=== PATIENT | male | born 1985 | race Caucasian/White ===

== ENCOUNTER 2017-04-18 18:14 | Emergency (ER) | payer OTHER ==
[~2017-04-18] VITALS: Wt 81.5 kg
[2017-04-18] MEDS ORDERED: IBUPROFEN 600 MG TAB PO ONE (19:30)
[2017-04-18] MEDS ORDERED: DIPHTH/TET/ACEL PERTUSS (ADULT) 0.5 ML VIAL IM* ONE (19:30)
[2017-04-18] MEDS ORDERED: LIDOCAINE 1% (MDV) 20 ML INJ SC ONE (19:30)
--- NOTE | 2017-04-18 20:43 | RADRPT ---
PROCEDURE: XR Right Hand CLINICAL INDICATION: Laceration to right index finger. TECHNIQUE: PA, oblique, and lateral radiographs were submitted. COMPARISON: None FINDINGS: Osseous structures: appear well mineralized and intact with no fracture or destructive process iden tified. Joint spaces: are well maintained, with no significant spurring, erosion or joint effusion evident. Soft tissues: appear unremarkable. IMPRESSION: Unremarkable right hand. Physician Ashlee Date Time Electronically viewed and signed by Stanton Bragg Physician on 04/18/2017 20:42 /
[2017-04-18] MEDS ORDERED: IBUP-1542 PO (20:46)
[2017-04-18] MEDS ORDERED: CEPH-443 PO (20:46)
[2017-04-18 20:59] VITALS: BP 125/73; PULSE 79; RESP 18; TEMP 98
--- NOTE | 2017-04-18 21:49 | ERD ---
ER Documentation Chief Complaint Date/Time DATE: 04/18/17 TIME: 21:44 Chief Complaint RIGHT INDEX LAC HPI This patient is a 32-year-old male presenting to the emergency department with complaints of right index finger laceration which occurred today while playing basketball. The patient states a basketball hit his right index finger hyperextending it and tearing the skin at the PIP joint line on the ventral surface of the hand. He went to an urgent care and he was sent to the emergency department from there because there was tendon visible. Pain is 3 out of 10 and worse with movement. Tetanus is not up-to-date. No significant bleeding was noted. He states he can move all his fingers well and make a fist. No other injuries or symptoms reported. ROS All systems reviewed and are negative except as per history of present illness. Medications Home Meds Active Scripts Ibuprofen* (Motrin*) 600 Mg Tab, 600 MG PO Q6, #30 TAB Prov:ALICIA GUILLEN PA-C 04/18/17 Cephalexin* (Keflex*) 500 Mg Capsule, 500 MG PO TID for 5 Days, #15 CAP Prov:ALICIA GUILLEN PA-C 04/18/17 Allergies Allergies: Coded Allergies: No Known Allergy (Unverified , 04/18/17) PMhx/Soc Medical and Surgical Hx: pt denies Medical Hx, pt denies Surgical Hx History of Surgery: No Anesthesia Reaction: No Hx Neurological Disorder: No Hx Respiratory Disorders: No Hx Cardiac Disorders: No Hx Psychiatric Problems: No Hx Miscellaneous Medical Probl: No Hx Alcohol Use: Yes Hx Substance Use: No Hx Tobacco Use: No Smoking Status: Never smoker Physical Exam Vitals Vital Signs Date Time Temp Pulse Resp B/P Pulse Ox O2 Delivery O2 Flow Rate FiO2 04/18/17 20:59 98.0 79 18 125/73 100 Room Air 04/18/17 18:16 98.1 78 18 129/78 99 Physical Exam Const: Nontoxic, well-appearing male in no acute distress. Head: Atraumatic Eyes: Normal Conjunctiva ENT: Normal External Ears, Nose and Mouth. Neck: Full range of motion..~ No meningismus. Resp: No signs of respiratory distress. Skin: There is an approximate 2 cm laceration over the PIP joint line on the ventral surface of the right index finger. There is tendon visible, however there is no evidence of foreign body or tendon rupture. Back: No midline or flank tenderness Ext: No cyanosis, or edema. The patient has full range of motion of all 5 fingers of the right upper extremity. The patient is able to fully flex and extend the right index finger. Sensation and strength is intact in the right index finger. 2+ radial pulses noted in the right upper extremity. Neur: Awake and alert Psych: Normal Mood and Affect Results 24 hrs Current Medications Medications (Trade) Dose Ordered Sig/[place] Route PRN Reason Start Time Stop Time Status Last Admin Dose Admin Ibuprofen (Motrin) 600 mg ONCE ONCE PO 04/18/17 19:30 04/18/17 19:31 DC 04/18/17 19:47 Diphtheria/ Tetanus/Acell Pertussis (Adacel) 0.5 ml ONCE ONCE IM* 04/18/17 19:30 04/18/17 19:31 DC 04/18/17 19:48 Lidocaine (Xylocaine 1% (Mdv) 20 ml) 20 ml ONCE ONCE SC 04/18/17 19:30 04/18/17 19:31 DC Procedures/MDM 32-year-old male presenting to the emergency department for laceration to his right index finger. On physical examination there was tendon visualized but no evidence of tendon rupture or severed tendon. I discussed this case with Dr. Sonido Anderson, who was made aware of the physical examination findings and recommended superficial simple interrupted sutures to repair the laceration. The patient tolerated the procedure well.X-rays show no acute abnormality. Antibiotics were given as a prescription to prevent infection of the hand. 48 hour follow-up was advised. Laceration Repair by me: Anesthesia: 1% lidocaine locally, Digital block. Location: Ventral surface of the right index finger at the PIP joint. Tendon/Joint/Nerves: No injury Foreign body: None detected after copious irrigation and exploration Technique: 4 x 4-o nylon Simple Interrupted Sutures Complexity: No subcutaneous sutures/mucosal repair/ edge excision Post Closure Length: 2 cm Patient's bleeding was easily controlled in the department and there is no indication of anemia. No evidence of compartment syndrome, neurologic injury, vascular injury, open joint, tendon laceration, or foreign body. Patient is appropriate for outpatient follow up. 48 hour wound check. Scar minimization instructions given. PROCEDURE: XR Right Hand CLINICAL INDICATION: Laceration to right index finger. TECHNIQUE: PA, oblique, and lateral radiographs were submitted. COMPARISON: None FINDINGS: Osseous structures: appear well mineralized and intact with no fracture or destructive process identified. Joint spaces: are well maintained, with no significant spurring, erosion or joint effusion evident. Soft tissues: appear unremarkable. IMPRESSION: Unremarkable right hand. Physician Ashlee Date Time Electronically viewed and signed by Physician Ashlee on 04/18/2017 20:42 Departure Diagnosis: Primary Impression: Laceration of right index finger Encounter type: initial encounter Damage to nail status: without damage Foreign body presence: without foreign body Qualified Code: S61.210A - Laceration of right index finger without foreign body without damage to nail, initial encounter Condition: Fair Patient Instructions: Laceration, Hand Referrals: [facility] YOU HAVE RECEIVED A MEDICAL SCREENING EXAM AND THE RESULTS INDICATE THAT YOU DO NOT HAVE A CONDITION THAT REQUIRES URGENT TREATMENT IN THE EMERGENCY DEPARTMENT. FURTHER EVALUATION AND TREATMENT OF YOUR CONDITION CAN WAIT UNTIL YOU ARE SEEN IN YOUR DOCTORS OFFICE WITHIN THE NEXT 1-2 DAYS. IT IS YOUR RESPONSIBILITY TO MAKE AN APPOINTMENT FOR FOLOW-UP CARE. IF YOU HAVE A PRIMARY DOCTOR --you should call your primary doctor and schedule an appointment IF YOU DO NOT HAVE A PRIMARY DOCTOR YOU CAN CALL OUR PHYSICIAN REFERRAL HOTLINE AT IF YOU CAN NOT AFFORD TO SEE A PHYSICIAN YOU CAN CHOSE FROM THE FOLLOWING [facility] [address] [facility] [place] [address] [facility] [address] [facility]. [facility] [address] [facility]. [facility] [address] [facility] [address] [place] Additional Instructions: Return in 5-7 days for suture removal. Follow up with your PCP within the next 1-3 days for a repeat evaluation. If you require a referral to a specialist, your Primary Care Provider may be able to provide this for you. In most patient cases, a referral is not required. If you have further questions regarding this matter, please ask your Primary Care Provider. Return the the emergency department immediately if symptoms worsen or change. If you have any questions regarding medications, ask your pharmacist or us before you leave. If any adverse reactions, occur while taking your medications, discontinue the treatment and return to the emergency department immediately. If any new or worsening symptoms, uncontrolled fevers, or other unexplained symptoms occur, return to the emergency department immediately. Take your medications as directed, and complete the entire course of treatment. ALICIA GUILLEN PA-C Apr 18, 2017 21:49
== END 2017-04-18 21:01 | disposition home or self-care (01) ==
LOC: FTE 18:14
DX: S61.210A Laceration without foreign body of right index finger without damage to nail, initial encounter (principal); W21.05XA Struck by basketball, initial encounter; Y92.9 Unspecified place or not applicable; Z23 Encounter for immunization
CPT/HCPCS: 90471; 90715